=== PATIENT | female | born 1940 | race Caucasian/White ===

== ENCOUNTER 2016-12-09 09:36 | Day surgery (SDC) | payer MEDICARE, OTHER ==
[~2016-12-09] VITALS: Ht 157.5 cm; Wt 52.5 kg
[~2016-12-09 09:36] MED LIST: ASPIRIN E.C. 8181 MG PO; ATORVASTATIN PO; LEVOTHROID0.05 MG PO
[2016-12-09 10:47] VITALS: BP 150/77; PULSE 98; TEMP 97.8
[2016-12-09 12:48] VITALS: BP 161/61; PULSE 92; TEMP 98.8
[2016-12-09 12:56] VITALS: TEMP 98.8
[2016-12-09 13:03] VITALS: BP 154/83; PULSE 98
[2016-12-09 13:18] VITALS: BP 156/78; PULSE 94
[2016-12-09] MEDS ORDERED: NORCO 325 MG-51 TAB PO (13:19)
[2016-12-09] MEDS ORDERED: PYRIDIUM 100MG100 MG PO (13:20)
== END 2016-12-09 14:18 | disposition home or self-care (01) ==
LOC: SDCO 09:36
DX: N30.10 Interstitial cystitis (chronic) without hematuria (principal); R82.99 Other abnormal findings in urine; N13.30 Unspecified hydronephrosis; R39.15 Urgency of urination; R35.0 Frequency of micturition; N28.89 Other specified disorders of kidney and ureter; E11.9 Type 2 diabetes mellitus without complications; E78.5 Hyperlipidemia, unspecified; I10 Essential (primary) hypertension; E03.9 Hypothyroidism, unspecified; Z79.899 Other long term (current) drug therapy
CPT/HCPCS: C1769; J0690; J1100; J2405; J2704; J3010; J7120; Q9967

== ENCOUNTER 2017-02-11 10:27 | Emergency (ER) | payer MEDICARE, OTHER ==
[~2017-02-11] VITALS: Ht 154.9 cm; Wt 47.7 kg
[~2017-02-11 10:27] MED LIST changes: +NORCO 325 MG-51 TAB PO; +PYRIDIUM 100MG100 MG PO
[2017-02-11 10:32] VITALS: TEMP 98.5
[2017-02-11 11:29] LABS: ALBUMIN 3.3 gm/dL (3.5-5.0); BILIRUBIN,TOTAL 0.9 mg/dL (0.0-1.0); CALCIUM 8.4 mg/dL (8.4-10.2); CREATININE, serum 0.97 mg/dL (0.52-1.25); MEAN CELL VOLUME 89 fl (80.0-100.0); MEAN CORPUSCULAR HGB CONC 34 g/dl (33.0-37.0); PLATELET COUNT 235 K/mm3 (130-400); POTASSIUM 3.1 mmol/L (3.4-5.0); RED BLOOD COUNT 3.99 M/mm3 (4.10-5.30); REDCELL DISTRIBUTION WIDTH-CV 13.4 % (11.5-14.5); TOTAL PROTEIN 6.5 gm/dL (6.4-8.2); WHITE BLOOD COUNT 8.6 K/mm3 (4.8-10.8)
[2017-02-11 11:33] LABS: HEMATOCRIT 35.5 % (37.0-47.0); HEMOGLOBIN 11.9 g/dl (12.5-16.0); MEAN CORPUSCULAR HEMOGLOBIN 30 pg (27.0-31.0)
[2017-02-11 12:13] LABS: PH 5 (5-8); SQUAMOUS EPITHELIAL 0-2 /hpf; URINE APPEARANCE Cloudy; URINE BACTERIA None Seen /hpf; URINE BILIRUBIN Negative (NEGATIVE); URINE BLOOD 2+ (NEGATIVE); URINE COLOR Yellow; URINE GLUCOSE Negative (NEGATIVE); URINE KETONE Negative (NEGATIVE); URINE RBC >50 /hpf; URINE UROBILINOGEN Negative (NEGATIVE); URINE WBC >50 /hpf
[2017-02-11 13:05] LABS: ADD PATHOLOGY DIFF REVIEW YES; BAND 7 % (0-10); METAMYELOCYTE 1 % (0-0); NEUTROPHILS 61 % (42.0-75.2); PLATELET ESTIMATE NORMAL (NORMAL); TOTAL CELLS COUNTED 100
[2017-02-11] MEDS ORDERED: CIPRO 500MG TA500 MG PO (13:08)
[2017-02-11 13:20] VITALS: BP 121/72; PULSE 88
[2017-02-13 08:48] LABS: PATHOLOGY DIFF REVIEW OK
== END 2017-02-11 13:22 | disposition home or self-care (01) ==
LOC: COL.ER 10:27
PROVIDERS: Family Medicine
DX: N30.00 Acute cystitis without hematuria (principal); K52.9 Noninfective gastroenteritis and colitis, unspecified
CPT/HCPCS: J7030; Q9967

== ENCOUNTER → 2017-12-28 | Outpatient (CLI) | payer MEDICARE, OTHER ==
[~2017-12-28] MED LIST changes: +CIPRO 500MG TA500 MG PO
== END ==
LOC: MC.RAD 09:20
DX: Z12.31 Encounter for screening mammogram for malignant neoplasm of breast (principal)

== ENCOUNTER 2020-08-23 18:45 | Emergency (ER) | payer MEDICARE, OTHER ==
[~2020-08-23] VITALS: Ht 154.9 cm; Wt 52.3 kg
[2020-08-23 19:03] VITALS: TEMP 98.5
[2020-08-23 20:03] LABS: BASO % 0.6 % (0.0-2.0); EOS # 0.2 (0.0-0.7); EOS % 2.5 % (0-4.0); GRAN # 4.2 (1.4-6.5); GRAN % 64.9 % (42.2-75.2); HEMATOCRIT 39.8 % (37.0-47.0); LYMPH # 1.5 (1.2-3.4); LYMPH % 22.6 % (20.0-51.0); MEAN CELL VOLUME 95 fl (80.0-100.0); MEAN CORPUSCULAR HEMOGLOBIN 31 pg (27.0-31.0); MEAN CORPUSCULAR HGB CONC 33 g/dl (33.0-37.0); MEAN PLATELET VOLUME 10.4 fl (7.4-10.4); MONO # 0.6 (0.1-0.6); MONO % 9.1 % (1.7-9.3); PLATELET COUNT 235 K/mm3 (130-400); REDCELL DISTRIBUTION WIDTH-CV 13.7 % (11.5-14.5)
[2020-08-23 20:05] LABS: INR 1.1 (0.8-3.0)
[2020-08-23 20:10] LABS: ALANINE AMINOTRANSFERASE 28 U/L (4-34); ALBUMIN 4.2 gm/dL (3.5-5.0); ALKALINE PHOSPHATASE 90 U/L (50-136); ANION GAP 8 mmol/L (7-16); AST,SGOT 26 U/L (15-37); BILIRUBIN,TOTAL 0.4 mg/dL (0.0-1.0); BLOOD UREA NITROGEN 20 mg/dL (7-17); CALCIUM 9.3 mg/dL (8.4-10.2); CARBON DIOXIDE 26 mmol/L (22-30); CHLORIDE 106 mmol/L (98-107); CREATININE, serum 1.16 (0.52-1.25); GLUCOSE 113 mg/dL (74-106); POTASSIUM 3.9 mmol/L (3.4-5.0); SODIUM 139 mmol/L (137-145); TOTAL PROTEIN 7.3 gm/dL (6.4-8.2)
[2020-08-23 20:24] LABS: TROPONIN-I < 0.012 ng/mL (0.000-0.035)
[2020-08-23 20:30] LABS: COLLECTION METHOD CLEAN CATCH
[2020-08-23 20:36] LABS: PH 7 (5-8); SQUAMOUS EPITHELIAL 0-2 /hpf; URINE APPEARANCE Clear; URINE BACTERIA None Seen /hpf; URINE BILIRUBIN Negative (NEGATIVE); URINE BLOOD Negative (NEGATIVE); URINE COLOR Yellow; URINE GLUCOSE Negative (NEGATIVE); URINE KETONE Negative (NEGATIVE); URINE LEUKOCYTE ESTERASE Negative (NEGATIVE); URINE NITRATE Negative (NEGATIVE); URINE PROTEIN(semi-quant) Negative (NEGATIVE); URINE RBC 0-2 /hpf; URINE UROBILINOGEN Negative (NEGATIVE)
[2020-08-23 21:35] VITALS: BP 164/85; PULSE 77
== END 2020-08-23 21:35 | disposition home or self-care (01) ==
LOC: COL.ER 18:45
PROVIDERS: Nurse Practitioner Primary Care
DX: R42 Dizziness and giddiness (principal); E03.9 Hypothyroidism, unspecified; Z90.49 Acquired absence of other specified parts of digestive tract; Z90.710 Acquired absence of both cervix and uterus; Z79.890 Hormone replacement therapy
CPT/HCPCS: J7030

== ENCOUNTER 2021-01-25 19:03 | Inpatient (IN) | payer MEDICARE, OTHER ==
[~2021-01-25] VITALS: Ht 154.9 cm; Wt 59.1 kg
[2021-01-25 20:12] LABS: COLLECTION METHOD CLEAN CATCH
[2021-01-25 20:18] LABS: BASO # 0.1 (0.0-0.2); BASO % 0.7 % (0.0-2.0); EOS # 0.4 (0.0-0.7); EOS % 5.1 % (0-4.0); GRAN # 3.7 (1.4-6.5); GRAN % 50.3 % (42.2-75.2); HEMATOCRIT 37.4 % (37.0-47.0); LYMPH # 2.4 (1.2-3.4); MEAN CELL VOLUME 97 fl (80.0-100.0); MEAN CORPUSCULAR HEMOGLOBIN 31 pg (27.0-31.0); MEAN CORPUSCULAR HGB CONC 32 g/dl (33.0-37.0); MEAN PLATELET VOLUME 10.3 fl (7.4-10.4); MONO # 0.8 (0.1-0.6); MONO % 10.8 % (1.7-9.3); PLATELET COUNT 252 K/mm3 (130-400); RED BLOOD COUNT 3.86 M/mm3 (4.10-5.30); REDCELL DISTRIBUTION WIDTH-CV 13.9 % (11.5-14.5)
[2021-01-25 20:32] LABS: MUCOUS Present /lpf; PH 6 (5-8); SQUAMOUS EPITHELIAL 0-2 /hpf; URINE APPEARANCE Clear; URINE BACTERIA None Seen /hpf; URINE BILIRUBIN Negative (NEGATIVE); URINE BLOOD Negative (NEGATIVE); URINE COLOR Yellow; URINE GLUCOSE Negative (NEGATIVE); URINE KETONE Negative (NEGATIVE); URINE LEUKOCYTE ESTERASE 1+ (NEGATIVE); URINE NITRATE Negative (NEGATIVE); URINE PROTEIN(semi-quant) Negative (NEGATIVE); URINE RBC 0-2 /hpf; URINE UROBILINOGEN Negative (NEGATIVE)
[2021-01-25 20:33] LABS: PROTHROMBIN TIME 11.2 SECONDS (9.7-12.8)
[2021-01-25 20:41] LABS: ALANINE AMINOTRANSFERASE 21 U/L (4-34); ALBUMIN 3.8 gm/dL (3.5-5.0); ALKALINE PHOSPHATASE 89 U/L (50-136); ANION GAP 7 mmol/L (7-16); AST,SGOT 22 U/L (15-37); BILIRUBIN,TOTAL < 0.1 mg/dL (0.0-1.0); BLOOD UREA NITROGEN 16 mg/dL (7-17); CALCIUM 9.1 mg/dL (8.4-10.2); CARBON DIOXIDE 25 mmol/L (22-30); CHLORIDE 109 mmol/L (98-107); CREATININE, serum 0.96 (0.52-1.25); GLUCOSE 104 mg/dL (74-106); POTASSIUM 3.8 mmol/L (3.4-5.0); SODIUM 141 mmol/L (137-145); TOTAL PROTEIN 7.3 gm/dL (6.4-8.2)
[2021-01-25 20:47] LABS: C-REACTIVE PROTEIN < 0.5 mg/dL (0.0-0.9)
[2021-01-25 20:54] LABS: TROPONIN-I < 0.012 ng/mL (0.000-0.035)
[2021-01-25] MEDS ORDERED: SYNTHROID0.075 MG/T PO (22:05)
[2021-01-25 22:34] VITALS: BP 180/78; PULSE 86; TEMP 98
--- NOTE | 2021-01-25 23:30 | NUR ---
Admitted to surgical floor from ER- DX right arm weakness, no weakness noted at this time- pt states her right arm just feels "heavier" than her left arm-- able to lift arm and has good hand grasp-- Up to bathroom without problems, very steady gait. VSS, Tele on per order, Down to radiology for CTA head/neck--completed now,, ate a sandwich and cookie/applesauce at this time-states she was very hungry!,, no requests, understands to call for assistance to bathroom, bed alarm on to remind her-- states "Im fine, Im going home tomorrow!
[2021-01-26] VITALS (8 sets, daily range): BP systolic 151–181; BP diastolic 65–78; PULSE 81–109; TEMP 97.6–98.6
--- NOTE | 2021-01-26 05:57 | NUR ---
Up to bathroom, voiding well,,denies pain, states right arm still just feels "heavy", good equal hand grasps- patient refused Lovenox last night-encouraged her to talk with doctor this morning about it-- Melia TELLES notified of her refusal last night. Having ECHO and BRain MRI sometimes this morning-
[2021-01-26 07:08] LABS: BASO # 0.1 (0.0-0.2); BASO % 0.7 % (0.0-2.0); EOS # 0.4 (0.0-0.7); EOS % 6.2 % (0-4.0); GRAN % 56.3 % (42.2-75.2); HEMOGLOBIN 11.3 g/dl (12.5-16.0); LYMPH # 1.8 (1.2-3.4); LYMPH % 25.9 % (20.0-51.0); MEAN CELL VOLUME 97 fl (80.0-100.0); MEAN CORPUSCULAR HEMOGLOBIN 31 pg (27.0-31.0); MEAN CORPUSCULAR HGB CONC 32 g/dl (33.0-37.0); MEAN PLATELET VOLUME 11.4 fl (7.4-10.4); MONO # 0.8 (0.1-0.6); MONO % 10.8 % (1.7-9.3); PLATELET COUNT 226 K/mm3 (130-400); RED BLOOD COUNT 3.63 M/mm3 (4.10-5.30); REDCELL DISTRIBUTION WIDTH-CV 13.8 % (11.5-14.5)
[2021-01-26 07:16] LABS: HEMATOCRIT 35.2 % (37.0-47.0)
[2021-01-26 07:19] LABS: CALCIUM 8.6 mg/dL (8.4-10.2); CHOLESTEROL RISK RATIO 3.6; CREATININE, serum 0.91 (0.52-1.25); POTASSIUM 3.7 mmol/L (3.4-5.0)
--- NOTE | 2021-01-26 08:00 | NUR ---
Dr Victoria here to see patient.
--- NOTE | 2021-01-26 09:13 | NUR ---
Pt is alert and oriented. Heart tones are present and normal with no murmur noted. Lung sounds are clear through all lobes. Pt denies any pain at this time. Pt states her arm still feels heavy since it began on 01/[address] Victoria came and consulted with patient. Pt was able to verbalize the conversation back with staff. Pt acknowledges the importance of situation.
--- NOTE | 2021-01-26 11:09 | NUR ---
Patient alert and oriented, answers questions appropriately. See assessment. C/o "heaviness" to RUE, able to move extremity in all directions; equal to LUE movement. RUE pulses palpable, no c/o numbness or tingling. 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 States heaviness to RUE has occurred x1 in the past. No c/o at this time.
--- NOTE | 2021-01-26 13:53 | NUR ---
Initial visit; Patient and her daughter thanked Wheel Filler for looking in on her offering empathy, interest and prayer.
--- NOTE | 2021-01-26 13:56 | NUR ---
PAWAN met with the patient and her daughter, Lynda Jay (ph#[phone]), to discuss discharge plan. The patient lives alone in [place]. She reports independence with ADLs and does not have any DME. The patient's PCP is Dr. Dario Sinclair and she receives her medications from [facility]. She reports no difficulties obtaining her meds. The patient does not have DPOA-HC in EMR and she was unsure if she has one completed. She was interested in obtaining a form. PAWAN provided. The patient states that her is and that she has five children: Lynda, Enriqueta Grubbs, Valerie, Kalia, and Garret. Neurology is recommending a vascular surgery eval. The patient and her daughter report that they will have a lot of questions about concerns about returning home, if she goes home before the blockage is dealt with. PT/OT have been ordered. SW to continue to follow.
--- NOTE | 2021-01-26 20:30 | NUR ---
Pt. sitting up in bed. Pt. is A&OX3, assessment complete. INT to lt. wrist patent. Pt. denies pain or other needs, call light within reach.
[2021-01-27 00:04] VITALS: BP 162/63; PULSE 92; TEMP 98.3
[2021-01-27 04:27] VITALS: BP 103/55; PULSE 72; TEMP 75.8
[2021-01-27 04:30] VITALS: BP 157/65; PULSE 87; TEMP 98.7
[2021-01-27 07:02] LABS: HEMOGLOBIN 11.5 g/dl (12.5-16.0); MEAN CELL VOLUME 96 fl (80.0-100.0); MEAN CORPUSCULAR HEMOGLOBIN 32 pg (27.0-31.0); MEAN CORPUSCULAR HGB CONC 33 g/dl (33.0-37.0); MEAN PLATELET VOLUME 10.9 fl (7.4-10.4); PLATELET COUNT 227 K/mm3 (130-400); RED BLOOD COUNT 3.64 M/mm3 (4.10-5.30); REDCELL DISTRIBUTION WIDTH-CV 13.8 % (11.5-14.5)
[2021-01-27 07:04] LABS: HEMATOCRIT 34.9 % (37.0-47.0)
[2021-01-27 07:15] LABS: CALCIUM 8.8 mg/dL (8.4-10.2); CREATININE, serum 1.02 (0.52-1.25); POTASSIUM 3.7 mmol/L (3.4-5.0)
[2021-01-27 07:36] VITALS: BP 187/64; PULSE 78; TEMP 98
--- NOTE | 2021-01-27 08:23 | NUR ---
UPON ENTRY TO ROOM PATIENT WAS SITTING UP IN BED AND HAD FINISHED BREAKFAST. MORNING MEDICATIONS GIVEN AT THIS TIME. SHIFT ASSESSMENT PERFORMED AT THIS TIME. PATIENT DENIES ANY PAIN AT THIS TIME. STROKE PROTOCOL ASSESSMENT COMPLETED AND DOCUMENTED FINDINGS INCLUDING RIGHT SIDED WEAKNESS. NO OTHER NEEDS AT THIS TIME. WILL CONTINUE TO MONITOR.
[2021-01-27] MEDS ORDERED: PLAVIX 75MG TAB75 MG PO (11:17)
[2021-01-27] MEDS ORDERED: PRINIVIL20 MG PO (11:17)
[2021-01-27] MEDS ORDERED: ASPIRIN 81M81 MG/TA2 PO (11:18)
[2021-01-27] MEDS ORDERED: LIPITOR 40MG TA40 MG PO (11:19)
--- NOTE | 2021-01-27 11:32 | NUR ---
OT notified PAWAN that the patient may benefit from some outpatient OT. PAWAN met with the patient and her daughter, Valerie, to discuss this. The patient reports that she is not interested in any outpatient therapy and does exercises on her home. The patient is to tentatively d/c back home today, 01/27. No additional needs at this time.
[2021-01-27 11:38] VITALS: BP 192/78; PULSE 84; TEMP 97.5
--- NOTE | 2021-01-27 13:26 | NUR ---
DISCHARGE INTRUCTIONS REVIEWED, QUESTIONS SOLICITED AND ANSWERED. PT LEFT AMBULATORY WITH ИРИНА COLBY.
== END 2021-01-27 13:30 | disposition home or self-care (01) | DRG 66 ==
LOC: COL.ER 19:03 → SURG 21:00
PROVIDERS: Emergency Medicine; Physician Assistant; Student in an Organized Health Care Education/Training Program; ADMIT Family Medicine
DX: I63.233 Cerebral infarction due to unspecified occlusion or stenosis of bilateral carotid arteries (principal); E03.9 Hypothyroidism, unspecified; I10 Essential (primary) hypertension; I08.1 Rheumatic disorders of both mitral and tricuspid valves; E78.5 Hyperlipidemia, unspecified; Z85.42 Personal history of malignant neoplasm of other parts of uterus; Z92.3 Personal history of irradiation; Z90.710 Acquired absence of both cervix and uterus
CPT/HCPCS: 99223-AI; 99233-AI; 99239; A9585; G0378; J1650; Q9967

== ENCOUNTER → 2021-01-29 | Outpatient (CLI) | payer MEDICARE, OTHER ==
[~2021-01-29] MED LIST changes: +ASPIRIN 81M81 MG/TA2 PO; +LIPITOR 40MG TA40 MG PO; +PLAVIX 75MG TAB75 MG PO; +PRINIVIL20 MG PO; +SYNTHROID0.075 MG/T PO
== END ==
LOC: COL.RAD 11:14
DX: I65.22 Occlusion and stenosis of left carotid artery (principal)

== ENCOUNTER 2021-05-19 13:15 | Outpatient (RCR) | payer MEDICARE, OTHER | END 2021-07-06 | disposition home or self-care (01) | LOC: MKS.ESL.OT | DX: I63.9 Cerebral infarction, unspecified (principal) ==

== ENCOUNTER 2021-11-19 11:05 | Emergency (ER) | payer MEDICARE, OTHER ==
[~2021-11-19] VITALS: Ht 154.9 cm; Wt 50.9 kg
[2021-11-19 11:18] VITALS: TEMP 98.4
[2021-11-19 12:20] LABS: BILIRUBIN,TOTAL 0.5 mg/dL (0.2-1.2); CALCIUM 8.5 mg/dL (8.4-10.2); CREATININE, serum 1.19 mg/dL (0.57-1.11); POTASSIUM 3.7 mmol/L (3.5-4.5); TOTAL PROTEIN 6.2 gm/dL (6.2-8.1)
[2021-11-19 12:21] LABS: BASO % 0.8 % (0.0-2.0); EOS % 0.8 % (0.0-4.0); GRAN # 3.1 K/mm3 (1.4-6.5); GRAN % 59.1 % (42.2-75.2); HEMOGLOBIN 11.7 g/dl (12.5-16.0); LYMPH # 1.2 K/mm3 (1.2-3.4); LYMPH % 23.4 % (20.0-51.0); MEAN CELL VOLUME 97 fl (80.0-100.0); MEAN CORPUSCULAR HEMOGLOBIN 31 pg (27-31); MEAN CORPUSCULAR HGB CONC 32 g/dl (33.0-37.0); MEAN PLATELET VOLUME 11.5 fl (7.4-10.4); MONO # 0.8 K/mm3 (0.1-0.6); MONO % 15.7 % (1.7-9.3); PLATELET COUNT 156 K/mm3 (130-400); RED BLOOD COUNT 3.76 M/mm3 (4.10-5.30)
[2021-11-19 12:24] LABS: HEMATOCRIT 36.3 % (37.0-47.0)
[2021-11-19] MEDS ORDERED: CRESTOR5 MG PO (13:02)
[2021-11-19 15:06] VITALS: BP 142/62; PULSE 98
== END 2021-11-19 15:14 | disposition home or self-care (01) ==
LOC: COL.ER 11:05
PROVIDERS: Personal Emergency Response Attendant
DX: E86.0 Dehydration (principal); R19.7 Diarrhea, unspecified; N28.9 Disorder of kidney and ureter, unspecified; I10 Essential (primary) hypertension; E03.9 Hypothyroidism, unspecified; E78.5 Hyperlipidemia, unspecified; Z86.73 Personal history of transient ischemic attack (TIA), and cerebral infarction without residual deficits; Z79.890 Hormone replacement therapy; Z79.82 Long term (current) use of aspirin; Z79.899 Other long term (current) drug therapy
CPT/HCPCS: J7030

== ENCOUNTER 2022-01-03 15:40 | Observation (INO) | payer MEDICARE, OTHER ==
[~2022-01-03] VITALS: Ht 152.4 cm; Wt 48.6 kg
[~2022-01-03 15:40] MED LIST changes: +CRESTOR5 MG PO
[2022-01-03 16:28] LABS: COLLECTION METHOD CLEAN CATCH
[2022-01-03 16:40] LABS: BASO % 0.3 % (0.0-2.0); EOS # 0.1 K/mm3 (0.0-0.7); EOS % 1.3 % (0.0-4.0); GRAN # 4.5 K/mm3 (1.4-6.5); GRAN % 66.4 % (42.2-75.2); LYMPH # 1.1 K/mm3 (1.2-3.4); LYMPH % 16.3 % (20.0-51.0); MEAN CELL VOLUME 91 fl (80.0-100.0); MEAN CORPUSCULAR HEMOGLOBIN 30 pg (27-31); MEAN CORPUSCULAR HGB CONC 33 g/dl (33.0-37.0); MEAN PLATELET VOLUME 10.8 fl (7.4-10.4); MONO % 15.1 % (1.7-9.3); PLATELET COUNT 254 K/mm3 (130-400); RED BLOOD COUNT 3.64 M/mm3 (4.10-5.30); REDCELL DISTRIBUTION WIDTH-CV 14.3 % (11.5-14.5)
[2022-01-03 16:46] LABS: MUCOUS Present (NOT PRESENT); PH 5 (5-8); URINE APPEARANCE Hazy (CLEAR/HAZY); URINE BACTERIA None Seen /hpf (NONE SEEN); URINE BILIRUBIN Negative (NEGATIVE); URINE BLOOD Negative (NEGATIVE); URINE COLOR Yellow (YELLOW); URINE GLUCOSE Negative (NEGATIVE); URINE KETONE Negative (NEGATIVE); URINE LEUKOCYTE ESTERASE 1+ (NEGATIVE); URINE NITRATE Negative (NEGATIVE); URINE PROTEIN(semi-quant) Negative (NEGATIVE); URINE RBC 0-2 /hpf (0-2); URINE UROBILINOGEN >=4.0 (NEGATIVE)
[2022-01-03 17:03] LABS: ALANINE AMINOTRANSFERASE 108 U/L (0-55); ALBUMIN 2.3 gm/dL (3.4-4.8); ALKALINE PHOSPHATASE 278 U/L (40-150); ANION GAP 10 mmol/L (7-16); AST,SGOT 61 U/L (5-34); BILIRUBIN,TOTAL 0.5 mg/dL (0.2-1.2); BLOOD UREA NITROGEN 20 mg/dL (10-20); CALCIUM 8.5 mg/dL (8.4-10.2); CARBON DIOXIDE 21 mmol/L (23-31); CHLORIDE 100 mmol/L (98-107); CREATININE, serum 0.83 mg/dL (0.57-1.11); GLUCOSE 126 mg/dL (70-99); POTASSIUM 4.3 mmol/L (3.5-4.5); SODIUM 131 mmol/L (136-145); TOTAL PROTEIN 6.4 gm/dL (6.2-8.1)
[2022-01-03 17:12] LABS: TROPONIN-I < 0.010 ng/mL (0.00-0.033)
[2022-01-03 22:04] VITALS: BP 146/97; PULSE 111; TEMP 98.3
[2022-01-03 23:37] VITALS: BP 159/68; PULSE 110; TEMP 98.5
[2022-01-04 04:03] VITALS: BP 128/57; PULSE 94; TEMP 97.3
[2022-01-04 06:58] LABS: BASO % 0.6 % (0.0-2.0); EOS # 0.1 K/mm3 (0.0-0.7); EOS % 2.1 % (0.0-4.0); GRAN % 56.9 % (42.2-75.2); LYMPH # 1.1 K/mm3 (1.2-3.4); LYMPH % 20.3 % (20.0-51.0); MEAN CELL VOLUME 91 fl (80.0-100.0); MEAN CORPUSCULAR HGB CONC 34 g/dl (33.0-37.0); MEAN PLATELET VOLUME 10.9 fl (7.4-10.4); MONO % 19.5 % (1.7-9.3); PLATELET COUNT 226 K/mm3 (130-400); RED BLOOD COUNT 3.15 M/mm3 (4.10-5.30); REDCELL DISTRIBUTION WIDTH-CV 14.6 % (11.5-14.5)
[2022-01-04 07:09] LABS: CALCIUM 7.7 mg/dL (8.4-10.2); CREATININE, serum 0.76 mg/dL (0.57-1.11); POTASSIUM 3.9 mmol/L (3.5-4.5)
[2022-01-04 07:26] LABS: HEMATOCRIT 28.5 % (37.0-47.0); HEMOGLOBIN 9.6 g/dl (12.5-16.0); MEAN CORPUSCULAR HEMOGLOBIN 30 pg (27-31)
[2022-01-04 08:39] VITALS: BP 115/57; PULSE 86; TEMP 97.8
[2022-01-04 11:23] VITALS: BP 123/59; PULSE 92; TEMP 97.7
[2022-01-04 16:13] VITALS: BP 171/66; PULSE 86; TEMP 97.8
[2022-01-04 20:20] VITALS: BP 155/55; PULSE 117; TEMP 100.9
[2022-01-05 00:53] VITALS: BP 124/56; PULSE 93; TEMP 97.7
[2022-01-05 04:42] VITALS: BP 140/57; PULSE 89; TEMP 97.7
[2022-01-05 06:34] LABS: CALCIUM 8.3 mg/dL (8.4-10.2); CREATININE, serum 0.8 mg/dL (0.57-1.11); POTASSIUM 3.8 mmol/L (3.5-4.5)
[2022-01-05 06:36] LABS: HEMOGLOBIN 10.4 g/dl (12.5-16.0); MEAN CELL VOLUME 92 fl (80.0-100.0); MEAN CORPUSCULAR HEMOGLOBIN 30 pg (27-31); MEAN CORPUSCULAR HGB CONC 33 g/dl (33.0-37.0); MEAN PLATELET VOLUME 10.2 fl (7.4-10.4); PLATELET COUNT 251 K/mm3 (130-400); RED BLOOD COUNT 3.46 M/mm3 (4.10-5.30); REDCELL DISTRIBUTION WIDTH-CV 14.6 % (11.5-14.5)
[2022-01-05 06:40] LABS: HEMATOCRIT 31.9 % (37.0-47.0)
[2022-01-05 07:31] VITALS: BP 155/82; PULSE 110; TEMP 98.5
[2022-01-05 09:55] LABS: ALBUMIN 2.1 gm/dL (3.4-4.8); BILIRUBIN,DIRECT 0.2 mg/dL (0.0-0.5); BILIRUBIN,TOTAL 0.3 mg/dL (0.2-1.2)
[2022-01-05] MEDS ORDERED: OMNICEF 300MG300 MG PO (12:48)
== END 2022-01-05 13:47 | disposition home or self-care (01) ==
LOC: COL.ER 15:40 → MEDICAL 18:31
PROVIDERS: Internal Medicine; Physician Assistant; Student in an Organized Health Care Education/Training Program; ADMIT Internal Medicine
DX: R53.1 Weakness (principal); S31.000A Unspecified open wound of lower back and pelvis without penetration into retroperitoneum, initial encounter; I66.9 Occlusion and stenosis of unspecified cerebral artery; R79.89 Other specified abnormal findings of blood chemistry; Z79.82 Long term (current) use of aspirin; Z79.899 Other long term (current) drug therapy; Z86.73 Personal history of transient ischemic attack (TIA), and cerebral infarction without residual deficits; I10 Essential (primary) hypertension; E78.5 Hyperlipidemia, unspecified; E03.9 Hypothyroidism, unspecified; Z79.890 Hormone replacement therapy; N39.0 Urinary tract infection, site not specified; D64.9 Anemia, unspecified; R50.9 Fever, unspecified; R00.0 Tachycardia, unspecified
CPT/HCPCS: 99239; A9575; G0378; J0696; J7030

== ENCOUNTER → 2022-01-17 | Outpatient (CLI) | payer MEDICARE, OTHER ==
[~2022-01-17] MED LIST changes: +OMNICEF 300MG300 MG PO
== END ==
LOC: COL.RAD 07:48
DX: K76.0 Fatty (change of) liver, not elsewhere classified (principal)

== ENCOUNTER 2024-05-12 16:20 | Emergency (ER) | payer MEDICARE ==
[~2024-05-12] VITALS: Ht 154.9 cm; Wt 49.1 kg
[~2024-05-12 16:20] MED LIST changes: +ZOFRAN ODT4 MG PO
[2024-05-12 16:36] VITALS: TEMP 98.7
[2024-05-12 17:19] LABS: COLLECTION METHOD CLEAN CATCH
[2024-05-12 17:28] LABS: URINE APPEARANCE TURBID (CLEAR/HAZY); URINE BLOOD 2+ (NEGATIVE); URINE COLOR YELLOW (YELLOW); URINE GLUCOSE NEGATIVE (NEGATIVE); URINE KETONE NEGATIVE (NEGATIVE); URINE NITRATE NEGATIVE (NEGATIVE); URINE PROTEIN(semi-quant) 2+ (NEGATIVE); URINE UROBILINOGEN 0.2 E.U/dL (0.2-1.0)
[2024-05-12] MEDS ORDERED: NS 1,000 ML IV ONE (17:45)
[2024-05-12 18:28] LABS: BASO % 0.6 % (0.0-2.0); EOS # 0.1 K/mm3 (0.0-0.7); EOS % 1.3 % (0.0-4.0); GRAN # 5.1 K/mm3 (1.4-6.5); GRAN % 72.8 % (42.2-75.2); HEMATOCRIT 30.1 % (37.0-47.0); HEMOGLOBIN 9.7 g/dl (12.5-16.0); LYMPH # 0.9 K/mm3 (1.2-3.4); LYMPH % 12.1 % (20.0-51.0); MEAN CELL VOLUME 93 fl (80.0-100.0); MEAN CORPUSCULAR HEMOGLOBIN 30 pg (27-31); MEAN CORPUSCULAR HGB CONC 32 g/dl (33.0-37.0); MEAN PLATELET VOLUME 11.6 fl (7.4-10.4); MONO # 0.9 K/mm3 (0.1-0.6); MONO % 12.8 % (1.7-9.3); PLATELET COUNT 183 K/mm3 (130-400); RED BLOOD COUNT 3.24 M/mm3 (4.10-5.30); REDCELL DISTRIBUTION WIDTH-CV 15.4 % (11.5-14.5)
[2024-05-12 18:36] LABS: ALBUMIN 2.6 g/dL (3.4-4.8); BILIRUBIN,TOTAL 0.4 mg/dL (0.2-1.2); CREATININE, serum 1.27 mg/dL (0.57-1.11); TOTAL PROTEIN 6.8 g/dl (6.2-8.1)
[2024-05-12] MEDS ORDERED: cefTRIAXone 1 G in Water For Injection,Sterile 10 ML IV ONE (18:45)
[2024-05-12] MEDS ORDERED: CEPHALEXIN500 M1 PO (19:35)
[2024-05-12 19:45] VITALS: BP 130/68; PULSE 110
== END 2024-05-12 19:47 | disposition home or self-care (01) ==
LOC: COL.ER 16:20
PROVIDERS: Family Medicine; Physician Assistant
DX: N39.0 Urinary tract infection, site not specified (principal)
CPT/HCPCS: J0696; J7030